=== PATIENT | female | born 1970 | race African-American/Black ===

== ENCOUNTER 2019-06-27 12:05 | Emergency (ER) | payer OTHER ==
[2019-06-27] MEDS ORDERED: DIPH/PERTUSS(ACELL)/TETANUS VAC/PF 0.5 ML SYR (>=10YO) IM ONE (13:08)
[2019-06-27] MEDS ORDERED: OXYCODONE-ACETAMINOPHEN 5-325 MG TABLET PO ONE (13:08)
--- NOTE | 2019-06-27 13:08 | ER Document Report ---
ED General - General Chief Complaint: Finger Injury Stated Complaint: FINGER INJURY Time Seen by Provider: 06/27/19 13:01 Primary Care Provider: ERIC CLARK MD [ACTIVE PROVISIONAL STAFF] - Follow up in 1 week TRAVEL OUTSIDE OF THE [place] IN LAST 30 DAYS: No - HPI Notes: 49-year-old female to the emergency department with complaints of left middle finger injury. She states that she was slicing cabbage at work on the [employer] when her finger got caught. She states that she took off the distal portion of the left middle finger and part of the nail. She states that she is not up-to-date on her tetanus immunizations. States that she immediately wrapped it and decided to come to the emergency department. She states that it is very painful. She states that she is right-hand dominant. - Related Data Allergies/Adverse Reactions: coconut Allergy (Verified 06/27/19 13:05) grapefruit Allergy (Verified 06/27/19 13:00) bees Allergy (Uncoded 06/27/19 13:00) Home Medications: htn. chf Past Medical History - General Information source: Patient - Social History Smoking Status: Current Every Day Smoker Chew tobacco use (# tins/day): No Frequency of alcohol use: Social Drug Abuse: None Family History: Reviewed & Not Pertinent Patient has suicidal ideation: No Patient has homicidal ideation: No Review of Systems - Review of Systems Constitutional: denies: Chills, Fever EENT: No symptoms reported Cardiovascular: denies: Chest pain, Palpitations, Dizziness, Lightheaded Respiratory: denies: Cough, Short of breath Gastrointestinal: denies: Abdominal pain, Diarrhea, Nausea, Vomiting Musculoskeletal: See HPI, Joint pain Skin: See HPI, Other - Laceration to finger Neurological/Psychological: No symptoms reported -: Yes All other systems reviewed and negative Physical Exam - Vital signs Vitals: Temp Pulse Resp BP Pulse Ox 99.3 F 107 H 16 131/83 H 97 06/27/19 12:26 06/27/19 12:26 06/27/19 12:26 06/27/19 12:26 06/27/19 12:26 Interpretation: Normal - General General appearance: Appears well, Alert In distress: None - HEENT Head: Normocephalic, Atraumatic Eyes: Normal Pupils: PERRL - Respiratory Respiratory status: No respiratory distress Chest status: Nontender Breath sounds: Normal. No: Rales, Rhonchi, Wheezing Chest palpation: Normal - Cardiovascular Rhythm: Regular Heart sounds: Normal auscultation Murmur: No - Abdominal Inspection: Normal Distension: No distension Bowel sounds: Normal Tenderness: Nontender. No: Tender, McBurney's point, Mccarthy's sign, Guarding, Rebound Organomegaly: No organomegaly - Extremities Notes: There is a soft tissue avulsion to the middle left finger. The nail has been distally removed. There does not appear to be any bone showing. Patient has full range of motion of that finger against resistance with 5 out of 5 strength. She does have a lot of tenderness to palpation to the distal portion of the finger. Radial pulses are intact and equal. Nontender to palpation to all the other fingers on the left hand. Nontender to palpation of the left wrist left elbow and left shoulder. - Neurological Neuro grossly intact: Yes Cognition: Normal Orientation: AAOx4 [place] Coma Scale Eye Opening: Spontaneous [place] Coma Scale Verbal: Oriented [place] Coma Scale Motor: Obeys Commands [place] Coma Scale Total: 15 Speech: Normal Cranial nerves: Normal. No: Facial palsy, Forehead sparing, Gaze palsy, Sensory deficit, Tongue deviation Cerebellar coordination: Normal. No: Gait ataxia Motor strength normal: LUE, RUE, LLE, RLE Additional motor exam normals: Equal breaker up. No: Pronator drift Sensory: Normal - Psychological Associated symptoms: Normal affect, Normal mood - Skin Skin Temperature: Warm Skin Moisture: Dry Skin Color: Normal Skin irregularity: other - See extremity for further discussion about soft tissue avulsion to left middle finger Course - Re-evaluation Re-evalutation: 06/29/19 Impression: Soft tissue avulsion to the left middle finger. There is nothing to repair here. She did not have a distal tuft open fracture. However I will start her on antibiotics. Updated her tetanus. We will have her follow-up with hand specialist. Patient agrees with the plan. - Vital Signs Vital signs: Temp Pulse Resp BP Pulse Ox 99.3 F 100 18 134/98 H 96 06/27/19 12:26 06/27/19 14:31 06/27/19 14:31 06/27/19 14:31 06/27/19 14:31 - Diagnostic Test Radiology reviewed: Image reviewed, Reports reviewed Procedures - Immobilization Left Finger 3rd digit Immobilizer type: Finger splint (Static) Performed by: PCT Post-Proc Neuro Vasc Exam: Normal Alignment checked and good: Yes Discharge - Discharge Clinical Impression: Soft tissue avulsion Finger injury Qualifiers: Encounter type: initial encounter Laterality: left Qualified Code(s): S69.92XA - Unspecified injury of left wrist, hand and finger(s), initial encounter Condition: Stable Disposition: HOME, SELF-CARE Instructions: Dressing Instructions for Open Wounds ([facility]) Additional Instructions: Use nonadhesive dressings for wound care. Use warm soapy water to clean the wound. Use splint without fail. Wait 24 hours prior to changing her current dressing. When you change it wet the dressing just a little bit to make sure that it comes off easily. Return if any worsening symptoms such as increased pain, fever, redness increased swelling to the finger. Complete all antibiotics. Follow-up with orthopedist as well as Workmen's Comp. Prescriptions: Ibuprofen [Motrin 600 mg Tablet] 600 mg PO Q8HP PRN #24 tablet PRN Reason: Cephalexin Monohydrate [Keflex 500 mg Capsule] 500 mg PO QID 7 Days #40 capsule Oxycodone HCl/Acetaminophen [Percocet 5-325 mg Tablet] 1 tab PO Q6H PRN #10 tab PRN Reason: Forms: Return to Work Referrals: ERIC CLARK MD [ACTIVE PROVISIONAL STAFF] - Follow up in 1 week
--- NOTE | 2019-06-27 13:44 | RADIOLOGY REPORT (SQ) ---
EXAM DESCRIPTION: FINGER LEFT COMPLETED DATE/TIME: 06/27/2019 1:27 pm REASON FOR STUDY: DISTAL FINGER AVULSION, EVAL FOR TUFFS COMPARISON: None. NUMBER OF VIEWS: Three views of the left hand and long finger LIMITATIONS: None. FINDINGS: Loss of tissue at the tip of the long finger. Allowing for artifact, significant retained foreign body in the deep soft tissues is not suggested. No clear loss of adjacent bone. OTHER: No other significant finding. IMPRESSION: Soft tissue avulsion. No significant fracture or bone loss detected in the long finger. TECHNICAL DOCUMENTATION: JOB ID: [id number] Reading location - IP/workstation name: [email or web address]
[2019-06-27 14:32] VITALS: BP 134/98
== END 2019-06-27 14:30 | disposition home or self-care (01) ==
LOC: ER 12:05
DX: S61.313A Laceration without foreign body of left middle finger with damage to nail, initial encounter (principal); W31.82XA Contact with other commercial machinery, initial encounter; Y93.G1 Activity, food preparation and clean up; Y99.0 Civilian activity done for income or pay; F17.200 Nicotine dependence, unspecified, uncomplicated; Z23 Encounter for immunization
CPT/HCPCS: 90471; 90715; 99283